=== PATIENT | female | born 1945 | race Caucasian/White ===

== ENCOUNTER 2025-07-22 19:25 | Observation (INO) | payer MEDICARE ==
[2025-07-21 22:00] VITALS: BP 121/76; PULSE 70; RESP 16; TEMP 97.7; O2SAT 97
[~2025-07-22] VITALS: Ht 162.6 cm; Wt 68.0 kg
[2025-07-22 19:25] VITALS: TEMP 98.3
[2025-07-22] MEDS ORDERED: SODIUM CHLORIDE FLUSH 10 ML SYR IV PRN (19:30)
[2025-07-22 19:35] LABS: BASOPHILS % 0.8 % (0.0-1.0); EOSINOPHILS % 2.6 % (0.0-6.0); LYMPHOCYTES % 42.7 % (18.0-39.1); MONOCYTES % 5.9 % (4.4-11.3); NEUTROPHILS % 47.7 % (38.7-80.0); RED CELL DISTRIBUTION WIDTH 12.0 % (11.7-14.4)
[2025-07-22] MEDS: ASPIRIN 81 MG CHEW TAB PO ONE (19:37)
[2025-07-22 20:01] LABS: EST GLOMERULAR FILTRATION RATE 90 ML/MIN (>=60)
[2025-07-22] MEDS ORDERED: ONDANSETRON HCL INJ 2MG/ML 2ML 2 MG/ML VIAL IV PRN (21:00)
[2025-07-22] MEDS ORDERED: SODIUM CHLORIDE FLUSH 10 ML SYR INJ PRN (21:00)
[2025-07-22 21:45] VITALS: PULSE 73; RESP 16
[2025-07-22 22:00] VITALS: BP 122/75; PULSE 70; RESP 16; TEMP 97.7; O2SAT 94
[2025-07-22] MEDS ORDERED: LEVOTHYROXINE125 MCG PO (22:25)
[2025-07-22] MEDS ORDERED: BENZONATATE100 MG PO (22:25)
[2025-07-22] MEDS ORDERED: FLUOXETINE HCL40 MG PO (22:25)
[2025-07-22] MEDS ORDERED: PANTOPRAZOLE SO40 MG PO (22:25)
[2025-07-22] MEDS ORDERED: ROSUVASTATIN CAL5 MG PO (22:25)
[2025-07-22] MEDS: ACETAMINOPHEN/CODEINE 300MG - 30MG TAB PO PRN (23:04)
[2025-07-23 06:36] LABS: BASOPHILS % 0.9 % (0.0-1.0); EOSINOPHILS % 3.8 % (0.0-6.0); LYMPHOCYTES % 44.0 % (18.0-39.1); MONOCYTES % 7.3 % (4.4-11.3); NEUTROPHILS % 43.9 % (38.7-80.0); RED CELL DISTRIBUTION WIDTH 12.1 % (11.7-14.4)
[2025-07-23 07:17] LABS: EST GLOMERULAR FILTRATION RATE 89.0 ML/MIN (>=60)
[2025-07-23 08:00] VITALS: BP 125/77; PULSE 70; RESP 18; TEMP 97.6; O2SAT 95
[2025-07-23] MEDS ORDERED: FLUOXETINE HCL PO SCH (09:00)
[2025-07-23] MEDS ORDERED: NON-FORMULARY MEDICATION (Rosuvastatin Calcium 1 TAB) PO SCH (09:00)
[2025-07-23] MEDS: BENZONATATE 100 MG CAP PO SCH (09:38)
[2025-07-23] MEDS: ASPIRIN 81 MG ENTERIC COATED PO SCH (09:38)
[2025-07-23] MEDS: PANTOPRAZOLE SOD 40 MG TABEC PO SCH (09:38)
[2025-07-23 09:55] VITALS: BP 125/77; PULSE 70; RESP 18; TEMP 97.6; O2SAT 95
[2025-07-24] MEDS ORDERED: LEVOTHYROXINE SODIUM 125 MCG TAB PO SCH (06:00)
== END 2025-07-23 10:50 | disposition home or self-care (01) ==
LOC: ER 19:29 → ERHOLD 20:57 → MED/SURG2 22:24
PROVIDERS: ADMIT Internal Medicine; ATTEND Internal Medicine
DX: R07.89 Other chest pain (principal); F32.9 Major depressive disorder, single episode, unspecified; E78.5 Hyperlipidemia, unspecified; E03.9 Hypothyroidism, unspecified; K21.9 Gastro-esophageal reflux disease without esophagitis; I10 Essential (primary) hypertension; M19.90 Unspecified osteoarthritis, unspecified site
CPT/HCPCS: 36415; 71046; 80053 ×2; 82550; 83880; 84484 ×2; 85025 ×2; 93005 ×2; 94760; 99284; G0378 ×2; J2470

== ENCOUNTER 2025-08-02 23:01 | Emergency (ER) | payer MEDICARE ==
[~2025-08-02] VITALS: Ht 162.6 cm; Wt 71.2 kg
[~2025-08-02 23:01] MED LIST: BENZONATATE100 MG PO; FLUOXETINE HCL40 MG PO; LEVOTHYROXINE125 MCG PO; PANTOPRAZOLE SO40 MG PO; ROSUVASTATIN CAL5 MG PO
[2025-08-02 23:05] VITALS: PULSE 78; RESP 17; TEMP 97.9
[2025-08-02] MEDS: KETOROLAC TROMETHAMINE 30 MG/ML VIAL IM STA (23:30)
[2025-08-03] MEDS ORDERED: ULTRAM 50MG50 MG PO (00:39)
[2025-08-03 00:43] VITALS: BP 118/84; PULSE 60; RESP 17; TEMP 97.9; O2SAT 96
== END 2025-08-03 00:44 | disposition home or self-care (01) ==
LOC: ER 23:09
DX: M25.561 Pain in right knee (principal); W10.8XXA Fall (on) (from) other stairs and steps, initial encounter; Y93.01 Activity, walking, marching and hiking; Y92.89 Other specified places as the place of occurrence of the external cause; E03.9 Hypothyroidism, unspecified
CPT/HCPCS: 73560 ×2; 99283; J1885